=== PATIENT | female | born 1945 | race Caucasian/White ===

== ENCOUNTER 2017-01-11 09:57 | Day surgery (SDC) | payer MEDICARE ==
[~2017-01-11] VITALS: Ht 165.1 cm; Wt 99.3 kg
[~2017-01-11 09:57] MED LIST: EFFEXOR75 MG PO; FLUTICASONE PRO16 GM NASAL; HYDROCODON-ACE1 EAC7 PO; KEPPRA1000 MG PO; MELATONIN 3 MG1 TAB PO; TOPAMAX100 MG PO; VITAMIN B-121000 MCG PO; viberzi PO
[2017-01-11 11:07] LABS: HEMATOCRIT 44.4 % (36.0-48.0); HEMOGLOBIN 14.5 g/dL (12-16); MCH 31.7 pg (26.0-34.0); MCHC 32.7 g/dL (31.0-37.0); MCV 96.9 fL (80.0-100.0); MEAN PLATELET VOLUME 9.9 fL (7.4-10.4); RBC 4.58 10x6/uL (4.00-5.40); RDW 13.9 % (11.5-14.5)
[2017-01-11] MEDS ORDERED: VITAMIN D3400 UNI1 PO (12:39)
[2017-01-11 12:43] VITALS: BP 105/55; Ht 165.1 cm; Wt 99.3 kg
--- NOTE | 2017-01-11 15:13 | NUR ---
1510 CONSUMED APPROX 90% DIET; DENIES NAUSEA; IV DC'D 1510 DISCHARGE INSTRUCTIONS REVIEWED WITH PATIENT; VERBALIZED UNDERSTANDING
--- NOTE | 2017-01-14 14:38 | OP ---
PATIENT NAME: JULIANA ANAYA MEDICAL RECORD: [id number] :49 LOCATION:D.OPS ADMISSION DATE: SURGEON: ADDY GUADALUPE MD DATE OF OPERATION: 01/11/2017 PREOPERATIVE DIAGNOSES: Right hip arthritis and right trochanteric bursitis. POSTOPERATIVE DIAGNOSIS: Right hip arthritis and right trochanteric bursitis. PROCEDURES: 1. Fluoroscopic-guided injection of the right hip. 2. Right trochanteric bursa injection. SURGEON: Addy Guadalupe MD. ANESTHESIA: TIVA. INTRAOPERATIVE COMPLICATIONS: None. SUMMARY OF PATHOLOGIC FINDINGS: She has had mild to moderate arthritis on fluoroscopy consistent with the preoperative diagnosis and the patient had known trochanteric bursitis as well. OPERATIVE IN DETAIL: After obtaining the appropriate preoperative orthopedic surgery consent as well as anesthetic consultation, evaluation and clearance, the patient was brought to the operating room and to the operating table in supine position. After TIVA was administered, the right hip was prepped and draped in routine sterile fashion. The C-arm was brought in. An 18-gauge needle was placed into the hip capsule, a small amount of Isovue was used to be sure that the tip was in the appropriate position and then 20 mL of 0.25% Marcaine with epinephrine mixed with 40 mg Depo-Medrol was injected into the hip. Having completed this, a bandage was applied. An 18-gauge needle was then used under fluoroscopy to place 20 mL of 0.25% Marcaine with epinephrine and 40 mg of Depo-Medrol into the trochanteric bursa region. Having completed this, the tip was removed and bandage was applied. The patient was awakened and taken to outpatient. TRANSINT:[id number] Voice Confirmation ID: [id number] DOCUMENT ID: [id number] ADDY GUADALUPE MD at 1438 CC: [id number] DICTATION DATE: 01/11/17 1407 [employer] OPERATOR: 01/11/17 2332 [facility] 01/11/[address] [id number]
== END 2017-01-11 15:15 | disposition home or self-care (01) ==
LOC: D.OPS 09:57 → D.PAN 12:15 → D.OPS 12:15
PROVIDERS: Anesthesiology
DX: M16.11 Unilateral primary osteoarthritis, right hip (principal); M54.5 Low back pain; K21.9 Gastro-esophageal reflux disease without esophagitis; Z01.812 Encounter for preprocedural laboratory examination; Z87.891 Personal history of nicotine dependence